=== PATIENT | male | born 1980 | race Caucasian/White ===

== ENCOUNTER 2017-10-01 08:58 | Emergency (ER) | payer OTHER ==
--- NOTE | 2017-10-01 10:36 | ED PDOC ---
Upper Extremity Pain/Injury Time Seen by Provider: 10/01/17 09:17 Chief Complaint (Nursing): Upper Extremity Problem/Injury History Per: Patient History/Exam Limitations: no limitations Onset/Duration Of Symptoms: Hrs (x couple hours ago) Current Symptoms Are (Timing): Still Present Additional Complaint(s): 36-year-old male presents to ED complaining of left-sided neck pain, onset couple hours ago at work. Pt reports he was turning his head to the right and felt spasm on the left side of his neck. Pt reports difficulty turning and pain when turning his head to the left. Denies any other complaints at this time. PMD: Pauline Guardado Past Medical History Reviewed: Historical Data, Nursing Documentation, Vital Signs Vital Signs: Last Vital Signs Temp 99.6 F 10/01/17 09:03 Pulse 112 H 10/01/17 09:03 Resp 18 10/01/17 09:03 BP 113/66 10/01/17 09:03 Pulse Ox 96 10/01/17 09:03 - Medical History PMH: No Chronic Diseases - Surgical History Surgical History: No Surg Hx - Family History Family History: States: Unknown Family Hx - Social History Current smoker - smoking cessation education provided: No Alcohol: None Drugs: Denies - Home Medications Home Medications: Ambulatory Orders Medication Instructions Recorded Cyclobenzaprine [Cyclobenzaprine 10 mg PO TID PRN #15 tab 10/01/17 HCl] Ibuprofen [Motrin] 600 mg PO Q6 PRN #20 tab 10/01/17 - Allergies Allergies/Adverse Reactions: Allergies Allergy/AdvReac Type Severity Reaction Status Date / Time No Known Allergies Allergy Verified 10/01/17 09:09 Review of Systems ROS Statement: Except As Marked, All Systems Reviewed And Found Negative Musculoskeletal: Positive for: Neck Pain (left-sided), Other (difficulty turning and pain when turning head to the left) Physical Exam - Reviewed Nursing Documentation Reviewed: Yes Vital Signs Reviewed: Yes - Physical Exam Appears: Positive for: Well (Resting comfortably), No Acute Distress Head Exam: Positive for: ATRAUMATIC, NORMAL INSPECTION, NORMOCEPHALIC Eye Exam: Positive for: Normal appearance, EOMI, PERRL Neck: Negative for: Normal ((+) Neck spasm on the left side of paraspinal lateral neck area, (+) difficulty turning neck to the left) - ECG O2 Sat by Pulse Oximetry: 96 (RA) Pulse Ox Interpretation: Normal - Progress Re-evaluation Time: 10:49 Condition: Re-examined, Improved Medical Decision Making Medical Decision Making: Time: 09:37 Impression(s): Muscle Spasm of Neck, Torticollis Plan: - Flexeril 10 mg PO - Toradol 30 mg IM Upon provider evaluation patient is medically stable, and requires no further treatment in the ED at this time. Patient will be discharged with Rx for Cyclobenzaprine HCl and Motrin. Counseling was provided and all questions were answered regarding diagnosis and need for follow up with PCP in 2-3 days. There is agreement to discharge plan. Return if symptoms persist or worsen. Scribe Attestation: Documented by Zachary Johnson, acting as a scribe for Poornima Álvarez MD. Provider Scribe Attestation: All medical record entries made by the Scribe were at my direction and personally dictated by me. I have reviewed the chart and agree that the record accurately reflects my personal performance of the history, physical exam, medical decision making, and the department course for this patient. I have also personally directed, reviewed, and agree with the discharge instructions and disposition. Disposition - Clinical Impression Clinical Impression: Neck pain on left side, Torticollis - Patient ED Disposition Is Patient to be Admitted: No Doctor Will See Patient In The: Office Counseled Patient/Family Regarding: Studies Performed, Diagnosis, Need For Followup - Disposition Referrals: [facility] [Outside] Disposition: Routine/Home Disposition Time: 10:53 Condition: GOOD Additional Instructions: Take your medications as instructed. Follow up with your PCP in 2-3 days. Prescriptions: Cyclobenzaprine [Cyclobenzaprine HCl] 10 mg PO TID PRN #15 tab PRN Reason: Muscle Spasm Ibuprofen [Motrin] 600 mg PO Q6 PRN #20 tab PRN Reason: Pain, Moderate (4-7) Instructions: Torticollis (DC) Forms: [facility] ED School/Work Excuse
[2017-10-01 10:47] VITALS: BP 112/76; PULSE 101; RESP 19; TEMP 98.6
[2017-10-01 10:51] VITALS: O2SAT 96
== END 2017-10-01 11:07 | disposition home or self-care (01) ==
LOC: H.ER 08:58
DX: M43.6 Torticollis (principal)
CPT/HCPCS: 96372; 99283; J1885